=== PATIENT | female | born 1970 ===

== ENCOUNTER 2018-09-23 15:26 | Emergency (ER) | payer OTHER ==
[2018-09-23 15:26] VITALS: BMI 24.7
[2018-09-23 16:04] VITALS: O2SAT 98
[2018-09-23 18:34] VITALS: RESP 18
[2018-09-23 19:37] VITALS: BP 114/77; PULSE 97; TEMP 98.3
--- NOTE | 2018-09-23 19:46 | C.PDOC ---
History Of Present Illness 48 year old female presents to the ED requesting methadone refill. Patient states she is experiencing withdrawals, she reports it has been 10 days since she had her last dose of methadone. Patient was kicked out of her program recently due to a family emergency, she is scheduled to get back into a program on October 01. Patient states she usually takes 105 mg of methadone. Patient is unable to provide any card or documents regarding her methadone dose. Patient also c/o generalized nausea. Patient denies any other medical complaints at this time. Time Seen by Provider: 09/23/18 18:17 Chief Complaint (Nursing): Substance Abuse History Per: Patient History/Exam Limitations: no limitations Onset/Duration Of Symptoms: Days Current Symptoms Are (Timing): Still Present Suicide/Self Injury Attempted (Context): None Modifying Factor(s): Narcotics Associated Symptoms: denies: Depression, Suicidal Thoughts, Suicidal Plan Recent travel outside of the [place]: No Additional History Per: Patient Past Medical History Reviewed: Historical Data, Nursing Documentation, Vital Signs Vital Signs: Last Vital Signs Temp 98.2 F 09/23/18 16:00 Pulse 123 H 09/23/18 16:00 Resp 22 09/23/18 16:00 BP 93/63 L 09/23/18 16:00 Pulse Ox 98 09/23/18 16:00 - Medical History PMH: Anxiety, Bipolar Disorder, Hypercholesterolemia Denies: Depression Surgical History: Appendectomy, Cholecystectomy - [facility] Procedures INJECT/INFUSE NEC (02/04/14) MAGNETIC RESONANCE IMAGING OF BRAIN AND BRAIN STEM (09/16/12) Family History: States: Unknown Family Hx - Social History Hx Tobacco Use: No Hx Alcohol Use: No Hx Substance Use: No Review Of Systems Constitutional: Negative for: Fever, Chills Cardiovascular: Negative for: Chest Pain Respiratory: Negative for: Cough, Shortness of Breath Gastrointestinal: Positive for: Nausea. Negative for: Vomiting, Abdominal Pain Neurological: Negative for: Weakness, Numbness Psych: Negative for: Depression, Suicidal ideation Physical Exam - Physical Exam Appears: Non-toxic, No Acute Distress Skin: Normal Color, Warm, Dry Head: Atraumatic, Normacephalic Eye(s): bilateral: Normal Inspection Oral Mucosa: Moist Neck: Normal ROM, Supple Chest: Symmetrical Cardiovascular: Rhythm Regular Respiratory: Normal Breath Sounds, No Rales, No Rhonchi, No Wheezing Gastrointestinal/Abdominal: Soft, No Tenderness, No Guarding, No Rebound Extremity: Bilateral: Atraumatic, Normal Color And Temperature, Normal ROM Neurological/Psych: Oriented x3, Normal Speech, Normal Cognition Gait: Steady ED Course And Treatment O2 Sat by Pulse Oximetry: 98 (ON RA) Pulse Ox Interpretation: Normal Medical Decision Making Medical Decision Making: Impression: Patient requesting methadone, with no signs of active withdrawals. Vitals signs stable. Plan: * Reglan 10 mg PO * Explained patient unable to provide methadone in the ED. * Patient will be discharged home with a prescription for a Narcan kit. Disposition - Disposition Disposition: HOME/ ROUTINE Disposition Time: 19:40 Condition: STABLE Additional Instructions: Follow up with Methadone clinic for appropriate dosing. Use Narcan in the case of opioid overdose. Prescriptions: Naloxone HCl [Narcan] 4 mg NS ONCE PRN #1 spray PRN Reason: Opiate Reversal Forms: [employer] (Indonesian) Print Language: KHMER - Clinical Impression Clinical Impression: Drug dependence - Scribe Statement The provider has reviewed the documentation as recorded by the Scribe Da Haley All medical record entries made by the Scribe were at my direction and personally dictated by me. I have reviewed the chart and agree that the record accurately reflects my personal performance of the history, physical exam, medical decision making, and the department course for this patient. I have also personally directed, reviewed, and agree with the discharge instructions and disposition.
== END 2018-09-23 20:17 | disposition home or self-care (01) ==
LOC: C.ER 15:26
DX: F19.20 Other psychoactive substance dependence, uncomplicated (principal)